=== PATIENT | female | born 1995 | race Caucasian/White ===

== ENCOUNTER 2017-08-27 02:42 | Emergency (ER) | payer SELFPAY ==
[2017-08-27] MEDS ORDERED: ACETAMINOPHEN 325 MG TABLET PO ONE (02:56)
[2017-08-27] MEDS ORDERED: LIDOCAINE 5% (700 MG) TRANSDERMAL ADH..PATCH TP ONE (02:56)
[2017-08-27] MEDS ORDERED: IBUPROFEN 600 MG TABLET PO ONE (02:56)
[2017-08-27 02:58] VITALS: BP 121/72
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
== END 2017-08-27 04:35 | disposition home or self-care (01) ==
LOC: ER 02:42
DX: S29.9XXA Unspecified injury of thorax, initial encounter (principal); R07.81 Pleurodynia; Y08.02XA Assault by strike by baseball bat, initial encounter; S09.93XA Unspecified injury of face, initial encounter; R68.84 Jaw pain; Y04.2XXA Assault by strike against or bumped into by another person, initial encounter; F17.200 Nicotine dependence, unspecified, uncomplicated
CPT/HCPCS: 70110; 71046; 99284